=== PATIENT | female | born 1985 | race African-American/Black ===

== ENCOUNTER 2017-04-16 08:46 | Emergency (ER) | payer OTHER ==
[~2017-04-16] VITALS: Ht 170.2 cm; Wt 89.0 kg
[2017-04-16 08:52] VITALS: BP 115/60; PULSE 71; RESP 18; TEMP 98.1; O2SAT 100
[2017-04-16] MEDS ORDERED: SODIUM CHLOR 0.9% 1000 ML INJ 1,000 ML IV SCH (08:58)
[2017-04-16 09:00] VITALS: BP 115/60; PULSE 70; RESP 20; TEMP 98.1; O2SAT 100
[2017-04-16] MEDS ORDERED: FAMOTIDINE 20 MG/2 ML VIAL IV PUSH ONE (09:00)
[2017-04-16] MEDS ORDERED: DICYCLOMINE HCL 10 MG CAP PO ONE (09:00)
[2017-04-16] MEDS ORDERED: ONDANSETRON HCL 4 MG/2 ML VIAL IVP ONE (09:00)
[2017-04-16] MEDS ORDERED: SODIUM CHLORIDE 0.9% FLUSH 10 ML FLUSH IV FLUSH PRN (09:00)
--- NOTE | 2017-04-16 09:04 | PD ---
HPI Chief Complaint: Abdominal Pain Time Seen by Provider: 08:52 Travel History International Travel<30 days: No Contact w/Intl Traveler<30days: No Traveled to known affect area: No History of Present Illness HPI The patient is a 31-year-old female who presents to the emergency department via EMS for nausea, vomiting, diarrhea, and epigastric abdominal pain. The patient states she developed crampy epigastric abdominal pain yesterday afternoon approximately 4:30 PM. The patient then awakened this morning with continuing crampy abdominal pain followed by diarrhea which she describes as loose and watery. The patient then developed nausea with dry heaves. The patient felt like she is going to "black out "at home, and subsequently laid down on the floor and called EMS. The patient denies any sick contacts at home. She did eat chicken yesterday with new spices, but denies any other family members at home with similar symptoms. The patient denies any recent international travel. She does complain of diaphoresis with the nausea and intermittent crampy abdominal pain, but denies any fever. The patient does have a history of endometriosis with previous diagnostic laparoscopy. The patient is currently on oral contraceptive pills and is currently on her menstrual cycle. The patient also complains of a sore throat and mild body aches. PFSH Past Medical History Narrative Medical Endometriosis ?: Unknown LMP: 04/14/17 Past Surgical History Narrative Surgical Diagnostic laparoscopy Social History Tobacco Use: No Allergies-Medications (Allergen,Severity, Reaction): Coded Allergies: Penicillins (Verified Allergy, Intermediate, Hives, 04/16/17) Reported Meds & Prescriptions Reported Meds & Active Scripts Active Phenergan (Promethazine HCl) 25 Mg Tablet 25 Mg PO Q6H PRN Reported 09/18 (Norethindrone-Ethinyl Estradiol-Fe) 1-20 Mg-Mcg Tab 1 Tab PO DAILY Review of Systems Except as stated in HPI: all other systems reviewed are Neg General / Constitutional: No: Fever HENT: Positive: Lightheadedness, Sore Throat Cardiovascular: No: Chest Pain or Discomfort Respiratory: No: Cough, Shortness of Breath Gastrointestinal: Positive: Nausea, Vomiting, Diarrhea, Abdominal Pain Genitourinary: Positive: Vaginal Bleeding (currently on her menstrual cycle), No: Dysuria Musculoskeletal: Positive: Myalgias Physical Exam Narrative GENERAL: Awake, alert, pleasant 31-year-old female who appears her stated age and is in no acute respiratory distress. SKIN: Focused skin assessment warm/dry. HEAD: Atraumatic. Normocephalic. EYES: Pupils equal and round. No scleral icterus. No injection or drainage. ENT: No nasal bleeding or discharge. Mucous membranes pink and moist. NECK: Trachea midline. No JVD. CARDIOVASCULAR: Regular rate and rhythm. No murmur appreciated. RESPIRATORY: No accessory muscle use. Clear to auscultation. Breath sounds equal bilaterally. GASTROINTESTINAL: Abdomen soft, minimal epigastric tenderness. Negative Sears' s. Negative McBurney's. MUSCULOSKELETAL: No obvious deformities. No clubbing. No cyanosis. No edema. NEUROLOGICAL: Awake and alert. No obvious cranial nerve deficits. Motor grossly within normal limits. Normal speech. PSYCHIATRIC: Appropriate mood and affect; insight and judgment normal. Data Data Last Documented VS Vital Signs Date Time Temp Pulse Resp B/P Pulse Ox O2 Delivery O2 Flow Rate FiO2 04/16/17 09:05 20 100 Room Air 04/16/17 09:00 98.1 70 115/60 Orders Complete Blood Count With Diff (04/16/17 08:58) Comprehensive Metabolic Panel (04/16/17 08:58) Lipase (04/16/17 08:58) Urinalysis - C+S If Indicated (04/16/17 08:58) Iv Access Insert/Monitor (04/16/17 08:58) Ecg Monitoring (04/16/17 08:58) Oximetry (04/16/17 08:58) Ondansetron Inj (Zofran Inj) (04/16/17 09:00) Sodium Chlor 0.9% 1000 Ml Inj (Ns 1000 M (04/16/17 08:58) Sodium Chloride 0.9% Flush (Ns Flush) (04/16/17 09:00) Famotidine Inj (Pepcid Inj) (04/16/17 09:00) Dicyclomine (Bentyl) (04/16/17 09:00) Ed Urine Pregnancytest Poc (04/16/17 08:58) Labs Laboratory Tests Test 04/16/17 09:15 White Blood Count 10.5 TH/MM3 Red Blood Count 4.46 MIL/MM3 Hemoglobin 13.3 GM/DL Hematocrit 38.5 % Mean Corpuscular Volume 86.3 FL Mean Corpuscular Hemoglobin 29.8 PG Mean Corpuscular Hemoglobin 34.5 % Concent Red Cell Distribution Width 13.5 % Platelet Count 304 TH/MM3 Mean Platelet Volume 7.6 FL Neutrophils (%) (Auto) 72.6 % Lymphocytes (%) (Auto) 19.0 % Monocytes (%) (Auto) 6.4 % Eosinophils (%) (Auto) 1.7 % Basophils (%) (Auto) 0.3 % Neutrophils # (Auto) 7.6 TH/MM3 Lymphocytes # (Auto) 2.0 TH/MM3 Monocytes # (Auto) 0.7 TH/MM3 Eosinophils # (Auto) 0.2 TH/MM3 Basophils # (Auto) 0.0 TH/MM3 CBC Comment DIFF FINAL Differential Comment Sodium Level 135 MEQ/L Potassium Level 4.0 MEQ/L Chloride Level 104 MEQ/L Carbon Dioxide Level 24.8 MEQ/L Anion Gap 6 MEQ/L Blood Urea Nitrogen 13 MG/DL Creatinine 0.80 MG/DL Estimat Glomerular Filtration 103 ML/MIN Rate Random Glucose 90 MG/DL Calcium Level 8.2 MG/DL Total Bilirubin 0.3 MG/DL Aspartate Amino Transf 10 U/L (AST/SGOT) Alanine Aminotransferase 14 U/L (ALT/SGPT) Alkaline Phosphatase 42 U/L Total Protein 7.4 GM/DL Albumin 3.3 GM/DL Lipase 112 U/L [facility] Medical Decision Making Medical Screen Exam Complete: Yes Emergency Medical Condition: Yes Medical Record Reviewed: Yes Interpretation(s) Laboratory Tests Test 04/16/17 09:15 White Blood Count 10.5 TH/MM3 Red Blood Count 4.46 MIL/MM3 Hemoglobin 13.3 GM/DL Hematocrit 38.5 % Mean Corpuscular Volume 86.3 FL Mean Corpuscular Hemoglobin 29.8 PG Mean Corpuscular Hemoglobin 34.5 % Concent Red Cell Distribution Width 13.5 % Platelet Count 304 TH/MM3 Mean Platelet Volume 7.6 FL Neutrophils (%) (Auto) 72.6 % Lymphocytes (%) (Auto) 19.0 % Monocytes (%) (Auto) 6.4 % Eosinophils (%) (Auto) 1.7 % Basophils (%) (Auto) 0.3 % Neutrophils # (Auto) 7.6 TH/MM3 Lymphocytes # (Auto) 2.0 TH/MM3 Monocytes # (Auto) 0.7 TH/MM3 Eosinophils # (Auto) 0.2 TH/MM3 Basophils # (Auto) 0.0 TH/MM3 CBC Comment DIFF FINAL Differential Comment Sodium Level 135 MEQ/L Potassium Level 4.0 MEQ/L Chloride Level 104 MEQ/L Carbon Dioxide Level 24.8 MEQ/L Anion Gap 6 MEQ/L Blood Urea Nitrogen 13 MG/DL Creatinine 0.80 MG/DL Estimat Glomerular Filtration 103 ML/MIN Rate Random Glucose 90 MG/DL Calcium Level 8.2 MG/DL Total Bilirubin 0.3 MG/DL Aspartate Amino Transf 10 U/L (AST/SGOT) Alanine Aminotransferase 14 U/L (ALT/SGPT) Alkaline Phosphatase 42 U/L Total Protein 7.4 GM/DL Albumin 3.3 GM/DL Lipase 112 U/L Differential Diagnosis Differential diagnosis includes gastroenteritis, viral syndrome, food poisoning , gastritis, peptic ulcer disease, biliary colic, pancreatitis, electrolyte abnormality, dehydration. Narrative Course IV was established, labs were drawn and sent, and the patient was placed on cardiac telemetry monitoring and continuous pulse oximetry monitoring. The patient was administered Bentyl, Zofran, and IV fluids. The patient was reevaluated at 10 AM, her nausea had resolved. There was no further vomiting. The patient was given a by mouth challenge with Gatorade. The patient was reevaluated at 10:30 AM, tolerated Gatorade without difficulty. The patient's symptoms have improved, she will be discharged home with Phenergan. She is advised to return if symptoms worsen or progress. Clear liquid diet and advance as tolerated. Diagnosis Primary Impression: Gastroenteritis Patient Instructions: General Instructions, Moderate Sedation in Children (ED) Additional Instructions: Medications as directed. Clear liquid diet and advance as tolerated. Follow- up with a primary physician. Work excuse for today and tomorrow. Return if symptoms worsen or progress. Med/Other Pt SpecificInfo: Prescription(s) given Scripts Promethazine (Phenergan)25 Mg [id number] Mg PO Q6H PRN (NAUSEA OR VOMITING) #12 TAB Ref 0 Prov:Philipp Ospina MD 04/16/17 Disposition: 01 DISCHARGE HOME Condition: Stable Philipp Ospina MD Apr 16, 2017 09:04
[2017-04-16 09:05] VITALS: RESP 20; O2SAT 100
[2017-04-16] MEDS ORDERED: NORE1TAB61 PO (09:07)
[2017-04-16 09:28] LABS: AUTOMATED NEUTROPHIL # 7.6 TH/MM3 (1.8-7.7); BASOPHIL % 0.3 % (0.0-2.0); EOSINOPHIL # 0.2 TH/MM3 (0-0.4); EOSINOPHIL % 1.7 % (0.0-4.0); HEMATOCRIT 38.5 % (35.0-46.0); HEMO FLAGS DIFF FINAL; MEAN CELL VOLUME 86.3 FL (80.0-100.0); MEAN CORPUSCULAR HEMOGLOBIN 29.8 PG (27.0-34.0); MEAN CORPUSCULAR HGB CONC 34.5 % (32.0-36.0); MONO % 6.4 % (0.0-8.0); NEUT % 72.6 % (16.0-70.0); PLATELET COUNT 304 TH/MM3 (150-450); RED BLOOD COUNT 4.46 MIL/MM3 (4.00-5.30); RED CELL DISTRIBUTION WIDTH 13.5 % (11.6-17.2); WHITE BLOOD COUNT 10.5 TH/MM3 (4.0-11.0)
[2017-04-16 09:48] LABS: ANION GAP 6 MEQ/L (5-15); AST (GOT) 10 U/L (15-37); BICARBONATE 24.8 MEQ/L (21.0-32.0); BLOOD UREA NITROGEN 13 MG/DL (7-18); CHLORIDE 104 MEQ/L (98-107); GLOMERULAR FILTRATION RATE 103 ML/MIN (>89); SODIUM (NA) 135 MEQ/L (136-145)
[2017-04-16 09:49] LABS: ALT (GPT) 14 U/L (10-53)
[2017-04-16 09:52] LABS: ALKALINE PHOSPHATASE 42 U/L (45-117); TOTAL BILIRUBIN ADULT 0.3 MG/DL (0.2-1.0)
[2017-04-16] MEDS ORDERED: PROM25TA10 PO (10:02)
[2017-04-16 10:42] LABS: BLOOD, URINE SMALL (NEG); COMMENT (UR) CULT NOT INDICATED; CULTURE IF INDICATED CULT NOT INDICATED; GLUCOSE,URINE NEG (NEG); KETONE, URINE NEG (NEG); NITRITE,URINE NEG (NEG); SQUAMOUS EPITHELIAL CELL URINE 1 /hpf (0-5); URINE COLOR YELLOW (YELLW/STRAW)
== END 2017-04-16 11:09 | disposition home or self-care (01) ==
LOC: NEPE 08:46
DX: K52.9 Noninfective gastroenteritis and colitis, unspecified (principal); R42 Dizziness and giddiness; J02.9 Acute pharyngitis, unspecified; Z88.0 Allergy status to penicillin
CPT/HCPCS: 80053; 81001; 83690; 84703; 85025; 96361; 96374; 96375; 99284; J2405; J7030